=== PATIENT | female | born 1995 | race African-American/Black ===

== ENCOUNTER 2021-04-30 14:28 | Emergency (ER) | payer SELFPAY ==
[~2021-04-30] VITALS: Ht 162.6 cm; Wt 99.8 kg
[2021-04-30 14:35] VITALS: BP 169/93
[2021-04-30] MEDS ORDERED: PANT20TA2 PO (14:55)
== END 2021-04-30 15:19 | disposition home or self-care (01) ==
LOC: ER 14:30
DX: J04.0 Acute laryngitis (principal); Z98.890 Other specified postprocedural states